=== PATIENT | male | born 1990 | race Caucasian/White ===

== ENCOUNTER 2016-05-11 16:26 | Emergency (ER) | payer BC ==
[~2016-05-11] VITALS: Wt 56.7 kg
[~2016-05-11 16:26] MED LIST: ALBUTEROL0.09 MG/A1 INH; CLINDAMYCIN HC300 MG PO; CYCLOBENZAPRINE5 M3 PO; HYDROCODONE BIT1 T11 PO; LEVAQUIN750 M1 PO; MOTRIN800 MG PO; Motrin,Rufen800 MG PO; NKHM; PREDNISONE50 MG PO; ROBAXIN500 MG PO
== END 2016-05-11 18:35 | disposition home or self-care (01) ==
LOC: ED 16:26
DX: S62.307A Unspecified fracture of fifth metacarpal bone, left hand, initial encounter for closed fracture (principal); F17.200 Nicotine dependence, unspecified, uncomplicated; W22.8XXA Striking against or struck by other objects, initial encounter; Y93.89 Activity, other specified; Y92.89 Other specified places as the place of occurrence of the external cause; Y99.9 Unspecified external cause status

== ENCOUNTER 2016-05-18 21:49 | Emergency (ER) | payer BC ==
[~2016-05-18] VITALS: Ht 172.7 cm; Wt 56.7 kg
[2016-05-18] MEDS ORDERED: Motrin,Rufen800 MG PO (23:46)
[2016-05-18] MEDS ORDERED: CYCLOBENZAPRINE5 M3 PO (23:46)
== END 2016-05-19 00:07 | disposition home or self-care (01) ==
LOC: ED 21:49
DX: M54.12 Radiculopathy, cervical region (principal); F17.200 Nicotine dependence, unspecified, uncomplicated

== ENCOUNTER 2020-07-19 13:51 | Emergency (ER) | payer BC ==
[~2020-07-19] VITALS: Wt 61.2 kg
== END 2020-07-19 16:31 | disposition home or self-care (01) ==
LOC: ED 13:51
DX: B34.9 Viral infection, unspecified (principal); Z20.822 Contact with and (suspected) exposure to COVID-19; Z79.899 Other long term (current) drug therapy

== ENCOUNTER 2024-12-29 12:55 | Emergency (ER) | payer BC ==
[~2024-12-29] VITALS: Ht 172.7 cm; Wt 63.5 kg
[2024-12-29] MEDS ORDERED: predniSONE 20 MG TAB PO ONE (13:15)
[2024-12-29] MEDS ORDERED: Meloxicam 15 MG TAB PO ONE (13:15)
[2024-12-29] MEDS ORDERED: METHOCARBAMOL 750 MG TAB PO ONE (13:15)
[2024-12-29] MEDS ORDERED: METHOCARBAMOL750 M1 PO (14:26)
[2024-12-29] MEDS ORDERED: NAPROSYN500 MG PO (14:26)
[2024-12-29] MEDS ORDERED: PREDNISONE20 M1 PO (14:26)
== END 2024-12-29 14:39 | disposition home or self-care (01) ==
LOC: ED 12:55
DX: S46.912A Strain of unspecified muscle, fascia and tendon at shoulder and upper arm level, left arm, initial encounter (principal); R51.9 Headache, unspecified; M54.12 Radiculopathy, cervical region; F17.210 Nicotine dependence, cigarettes, uncomplicated; V89.2XXA Person injured in unspecified motor-vehicle accident, traffic, initial encounter; Y93.89 Activity, other specified; Y92.410 Unspecified street and highway as the place of occurrence of the external cause; Y99.8 Other external cause status